=== PATIENT | female | born 1960 | race Caucasian/White ===

== ENCOUNTER 2020-07-29 11:51 | Emergency (ER) | payer OTHER ==
[2020-07-29 12:06] VITALS: BP 113/69
--- NOTE | 2020-07-29 12:11 | ED Physician Documentation ---
PD HPI WOUND RECHECK - Stated complaint Stated Complaint: LEFT HAND PAIN - Chief complaint Chief Complaint: Wound - Histroy obtained from History obtained from: Patient - History of Present Illness Location: Left Hand (She had a laceration from a wire fencing in the base of the left thumb in the webspace that was sutured 7 days ago at another facility. It was doing well until yesterday when developed a redness and a blister appearance on one edge.) Timing - onset: How many days ago (2) Associated symptoms: Redness, Swelling. No: Fever, Drainage Similar symptoms before: Has not had sx before Recently seen: Emergency Dept (1 week ago with sutured wound left thumb base/web space.) Review of Systems Constitutional: denies: Fever, Chills GI: denies: Nausea, Vomiting Neurologic: denies: Focal weakness, Numbness PD PAST MEDICAL HISTORY - Past Medical History Past Medical History: No Musculoskeletal: Osteoarthritis - Past Surgical History Past Surgical History: Yes Ortho: Hip replacement - Present Medications Home Medications: Ambulatory Orders Medication Instructions Recorded Confirmed Mupirocin 1 applic TP TID #15 g 07/29/20 Sulfamethox/Trimeth 800/160 1 each PO BID #14 tablet 07/29/20 [Bactrim Ds 800/160] - Allergies Allergies/Adverse Reactions: Allergies Allergy/AdvReac Type Severity Reaction Status Date / Time No Known Drug Allergies Allergy Verified 07/29/20 12:06 - Social History Does the pt smoke?: No Smoking Status: Never smoker Does the pt drink ETOH?: No Does the pt have substance abuse?: No - Immunizations Immunizations are current?: Yes PD ED PE NORMAL - Vitals Vital signs reviewed: Yes - General General: Alert and oriented X 3, No acute distress, Well developed/nourished - Derm Derm: Normal color, Warm and dry - Extremities Extremities: Other (The left hand has a sutured laceration along the webspace and base of the thumb on the left hand. There is some redness along 1 side of it on the palmar aspect. The wrist appears normal. There is a small white- colored area under the skin approximately 1 cm diameter lateral to the wound.) Results - Vitals Vitals: Vital Signs - 24 hr 07/29/20 12:01 Temperature 36.8 C Heart Rate 87 Respiratory 14 Rate Blood Pressure 113/69 O2 Saturation 98 Oxygen O2 Source Room air PD MEDICAL DECISION MAKING - ED course Complexity details: considered differential (There is a small superficial abscess appearing change adjacent to the laceration near the edge of 2 sutures. Those 2 sutures are removed. Scalpel was used to unroofed the skin over the blister and some purulence came out.), d/w patient Departure - Departure Disposition: 01 Home, Self Care Clinical Impression: Wound with infection determined by examination Condition: Stable Record reviewed to determine appropriate education?: Yes Instructions: ED Staph Infec Abx Tx Only Prescriptions: Sulfamethox/Trimeth 800/160 [Bactrim Ds 800/160] 1 each PO BID #14 tablet Mupirocin 1 applic TP TID #15 g Comments: We can leave the remaining sutures in for now and clean the area with soap and water twice daily and use mupirocin antibiotic ointment topically. Bactrim oral antibiotic twice daily for a week. See if the redness and swelling improve. Soak the hand in warm water twice daily for the first few days to promote drainage better. Recheck if worsening. Discharge Date/Time: 07/29/20 12:40
[2020-07-29] MEDS ORDERED: MUPIROCIN 2% OINT 1 GM TOP STA (12:27)
[2020-07-29] MEDS ORDERED: SULFAMETH/TRIMETH DS 800/160 MG TABLET PO STA (12:27)
== END 2020-07-29 12:40 | disposition home or self-care (01) ==
LOC: ED 11:51
DX: S61.012A Laceration without foreign body of left thumb without damage to nail, initial encounter (principal); W26.8XXA Contact with other sharp object(s), not elsewhere classified, initial encounter
CPT/HCPCS: 99282; 99283; A9270